=== PATIENT | female | born 1955 | race Caucasian/White ===

== ENCOUNTER 2024-03-20 12:44 | Emergency (ER) | payer MEDICARE, OTHER, SELFPAY ==
[2024-03-20 12:49] VITALS: BP 130/74
--- NOTE | 2024-03-20 12:52 | ED.GENMED ---
ED Provider Triage
<Norma Moore PA-C - Last Filed: 03/20/24 12:56>
-
Patient seen by provider in Triage?: Seen in Triage
Attestation: A medical screening examination has been initiated by a qualified medical provider. Based on the assessment performed at this time, it has been determined that an emergent medical condition may exist and the patient has been informed
that further medical evaluation and possible additional diagnostic testing may be needed.
HPI: 68yoF here with R sided chest pain x 5-6 days. Pain is pleuritic. Started with a URI initially. No fevers. Hx of PE but no longer on blood thinners. Hx of stage IV breast cancer on PO chemotherapy, follows with [facility].
GENERAL: Alert , in no apparent distress
EYE: No visual abnormalities.
NECK: Trachea midline
ENT: No visible abnormalities.
LUNGS: No acute respiratory distress
NEUROLOGICAL: Alert and oriented
SKIN: Skin intact. No visible changes.
MUSCULOSKELETAL: Moving extremities normally
PSYCH: Normal and appropriate interaction.
This is a medical evaluation conducted in person to initiate diagnostic evaluation and provide initial therapeutics. Please see further documentation by the treating clinician.
Cardiac labs, D-dimer, EKG, and CXR ordered.
History of Present Illness
<Norma Moore PA-C - Last Filed: 03/20/24 12:56>
General
Chief Complaint: Chest Pain
Time Seen by Provider: 03/20/24 15:57
<Peter Dela Cruz DO - Last Filed: 03/20/24 18:13>
General
Source: patient
Exam Limitations: none
History of Present Illness
History of Present Illness:
See MDM
Past History
<Norma Moore PA-C - Last Filed: 03/20/24 12:56>
Past History
ED Past Medical History: Cancer (Stage IV breast cancer) and Other (Bilateral PE)
ED Past Surgical History: Orthopedic (Fracture femor) and Other (Lumpectomy with Mets to the bone Taking Xeloda)
Social History
Tobacco: Former smoker
Alcohol: None
Drug: None
Personal:
Living: with family
Employment: Employed
Family History
Family History: Other (Noncontributory)
Phy Exam
<Peter Dela Cruz, DO - Last Filed: 03/20/24 18:13>
Physical Exam
Physical Exam:
See MDM
Scores
<Peter Dela Cruz, DO - Last Filed: 03/20/24 18:13>
Heart Score for Chest Pain Patients
STEMI patient?: No
History: Slightly or Non-Suspicious
ECG: Normal
Age: >/= 65 years
Risk Factors: 1 or 2 Risk Factors
Troponin: </= Normal Limit
Heart Score for Chest Pain Patients: 3
Heart Score Risk: 2.5% MACE over next 6 weeks
Course
<Norma Moore PA-C - Last Filed: 03/20/24 12:56>
Orders/Labs/Results
Orders:
Orders
03/20/24 12:44
Electrocardiogram (*1) Urgent
Reason for Study: Chest Pain
03/20/24 12:45
EKG- Treatment ONCE
03/20/24 12:58
Complete Blood Count/With Diff Urgent
Comprehensive Metabolic Panel Urgent
D-Dimer Urgent
Troponin I Urgent
03/20/24 15:07
CT Chest Pe Study Urgent
Comment:
Reason For Exam: Pleuritic R sided chest pain, elevated D-dimer
03/20/24 17:57
Ibuprofen [Motrin] 600 mg PO NOW STA
Abnormal Lab Results
03/20/24
12:58
WBC 13.0 H 10^3/uL
(4.8-10.8)
RBC 3.94 L 10^6/uL
(4.20-5.40)
MCH 32.7 H pg
(27.0-31.0)
RDW 14.6 H %
(11.5-14.5)
Abs Immat Gran (auto) 0.1 H 10^3/uL
(0-0.05)
Absolute Neuts (auto) 10.7 H 10^3/uL
(1.4-6.5)
Neutrophils % 82.7 H %
(42.2-75.2)
Lymphocytes % 11.8 L %
(20.5-51.1)
D-Dimer 1.29 H ug/mlFEU
(0.00-0.50)
BUN 20 H mg/dl
(7-17)
Glucose 118 H mg/dl
(70-99)
03/20/24 12:58
03/20/24 12:58
Vital Signs
Initial and Last Documented VS:
Initial Vital Signs
Temp Pulse Resp BP Pulse Ox
98.1 F 111 16 130/74 96
03/20/24 12:49 03/20/24 12:49 03/20/24 12:49 03/20/24 12:49 03/20/24 12:49
Last Documented Vital Signs
Temp Pulse Resp BP Pulse Ox
98.1 F 78 15 129/77 95
03/20/24 12:49 03/20/24 16:15 03/20/24 16:15 03/20/24 16:00 03/20/24 16:15
<Peter Dela Cruz, DO - Last Filed: 03/20/24 18:13>
Orders/Labs/Results
Orders:
Orders
03/20/24 12:44
Electrocardiogram (*1) Urgent
Reason for Study: Chest Pain
03/20/24 12:45
EKG- Treatment ONCE
03/20/24 12:58
Complete Blood Count/With Diff Urgent
Comprehensive Metabolic Panel Urgent
D-Dimer Urgent
Troponin I Urgent
03/20/24 15:07
CT Chest Pe Study Urgent
Comment:
Reason For Exam: Pleuritic R sided chest pain, elevated D-dimer
03/20/24 17:57
Ibuprofen [Motrin] 600 mg PO NOW STA
Abnormal Lab Results
03/20/24
12:58
WBC 13.0 H 10^3/uL
(4.8-10.8)
RBC 3.94 L 10^6/uL
(4.20-5.40)
MCH 32.7 H pg
(27.0-31.0)
RDW 14.6 H %
(11.5-14.5)
Abs Immat Gran (auto) 0.1 H 10^3/uL
(0-0.05)
Absolute Neuts (auto) 10.7 H 10^3/uL
(1.4-6.5)
Neutrophils % 82.7 H %
(42.2-75.2)
Lymphocytes % 11.8 L %
(20.5-51.1)
D-Dimer 1.29 H ug/mlFEU
(0.00-0.50)
BUN 20 H mg/dl
(7-17)
Glucose 118 H mg/dl
(70-99)
03/20/24 12:58
03/20/24 12:58
Vital Signs
Initial and Last Documented VS:
Initial Vital Signs
Temp Pulse Resp BP Pulse Ox
98.1 F 111 16 130/74 96
03/20/24 12:49 03/20/24 12:49 03/20/24 12:49 03/20/24 12:49 03/20/24 12:49
Last Documented Vital Signs
Temp Pulse Resp BP Pulse Ox
98.1 F 78 15 129/77 95
03/20/24 12:49 03/20/24 16:15 03/20/24 16:15 03/20/24 16:00 03/20/24 16:15
<Peter Dela Cruz, DO - Last Filed: 03/20/24 18:13>
MDM/Problems Addressed
Differential Diagnosis Includes:
HPI and MDM Narrative:
Patient was initially seen in triage and orders were obtained. I did review the triage note
68-year-old female presenting [id number] right-sided chest pain with inspiration. Patient was initially treated with antibiotics and steroids for upper respiratory infection. Given the ongoing symptoms, she was sent in for evaluation. Patient
has a history of cancer and a history of PEs. She has been off Xarelto for approximately 10 months. They have been trending D-dimers. D-dimer was performed in triage and it is elevated. Symptoms are not worse with exertion. Troponin negative.
Doubt ACS
Given her symptoms and her history, she is high risk for PE. Will obtain CT
Physical exam
General: Well appearing and non-toxic
HEENT: protecting airway
Neck: appears supple
CV: No evidence of cyanosis. Regular rate and rhythm
Resp: No accessory muscle use. Lungs clear
Abd: Non-distended
Extremities: No deformities
Neuro: alert
Psych: Normal affect
Skin: No chest wall rash noted
Problems Addressed including Acute and Chronic Conditions affecting care:
1. Pleuritic chest pain
Acuity: acute
Prognosis: stable
Details: Given her history, will obtain CT to rule out PE
2. [ ]
Acuity: acute
Prognosis: stable
Details:
3. [ ]
Acuity: acute
Prognosis: stable
Details:
4. [ ]
Acuity: acute
Prognosis: stable
Details:
5. [ ]
Acuity:
Prognosis:
Details:
Updates
Differential Diagnosis (but not limited to): Pneumonia, pleuritic chest pain, PE
Testing considered: Chest x-ray but will obtain CT PE
Drug therapy (if applicable): OTC meds, please see d/c instruction regarding Rx drugs
Amount and/or Complexity of Data Reviewed
Clinical info obtained from: Patient
External data reviewed: N/A
Labs I independently reviewed (but not limited to): Troponin normal, elevated D-dimer
Radiology: N/A
Pulse Ox: not hypoxic
EKG independently reviewed: N/A
In Home Caregiver: N/A
Critical Care: N/A
Risk of Complication:
Social Determinants of health: Good social support
Discussed with other providers: N/A
Escalation of Care includes Admit/Obs: After being observed in the Emergency Department, pt stable for discharge.
Occasional wrong word or 'sound a like' substitutions may have occurred due to the inherent limitations of voice recognition software. Read the chart carefully and recognize, using context, where substitutions have occurred.
<Peter Dela Cruz DO - Last Filed: 03/20/24 18:13>
*Critical Care Note
Total Time (30-74mins, 75-104mins- exclusive of procedures): Not Applicable
ED Attending Note
<Norma Moore PA-C - Last Filed: 03/20/24 12:56>
-
Portions of this chart may have been created with voice recognition software.� Occasional wrong word or��sound alike� substitutions may have occurred due to the inherent limitations of voice recognition software.
Discharge Plan
Departure
Patient Disposition: Home (Routine Discharge)
Date of Disposition: 10/22/24
Time of Disposition: 18:09
Patient with high blood pressure during this ER visit?: No
Discharge Problem:
Bronchiectasis
Instructions: Bronchiectasis in adults
Prescriptions:
No Action
dicyclomine 20 MG tablet
20 mg PO QID
topiramate 100 MG tablet
100 mg PO TID
multivitamin [Multi-Day] 1 EACH tablet
1 ea PO DAILY
calcium carbonate [calcium] 500 MG tablet
1,000 mg PO DAILY
Vitamin D
1,000 mg PO DAILY
aripiprazole 10 MG tablet
10 mg PO DAILY
Xarelto 20 MG tablet
20 mg PO DAILY
Vitamin B-1
1 tab PO DAILY
Patient Comments:
Pt does not know dose.
capecitabine [Xeloda] 500 mg Tablet
1,500 mg PO BID
Rx Instructions:
M,W,F
capecitabine [Xeloda] 500 mg Tablet
1,000 mg PO BID
Rx Instructions:
T, THRS, SAT, SUN
gabapentin 300 mg Tablet
300 mg PO QID
desvenlafaxine succinate [Pristiq] 100 mg Tablet Extended Release 24 Hr
100 mg PO DAILY
Referrals:
Dimas Askew DO [Family Provider] -
Activity Restrictions/Additional Instructions:
Please return for any worsening symptoms.
You may return at any time if you have further concerns.
Please follow up with your doctor at the first available appointment, preferably this week.
Please continue with the breathing treatments and steroids. Please add Mucinex for the mucus plugging.
Thank you for choosing [facility].
Interventions
Interventions:
*Risk Screen - Suicide Last Done: 03/20/24 12:49
*General Assessment Last Done: 03/20/24 12:49
*Neglect/Abuse Screening Last Done: 03/20/24 12:49
*ED COVID-19 Vaccine History Last Done: 03/20/24 16:38
Discharge Date and Time
Print Language: SENEGALESE
[2024-03-20 13:15] LABS: % Basophils 0.7 % (0-2); % Eosinophils 0.3 % (0-6); % Immature Granulocytes 0.5 % (0-0.5); % Lymphocytes 11.8 % (20.5-51.1); % Neutrophils 82.7 % (42.2-75.2); Absolute Basophils 0.1 10^3/uL (0-0.2); Absolute Immature Granulocytes 0.1 10^3/uL (0-0.05); Absolute Lymphocytes 1.5 10^3/uL (1.2-3.4); Absolute Monocytes 0.5 10^3/uL (0.1-0.6); Absolute Neutrophils 10.7 10^3/uL (1.4-6.5); Hematocrit 37.1 % (37.0-47.0); Hemoglobin 12.9 g/dL (12.0-16.0); Mean Corp Hgb Conc. 34.8 g/dL (33.0-37.0); Mean Corpuscular Hgb 32.7 pg (27.0-31.0); Mean Corpuscular Volume 94.2 fL (81.0-99.0); Mean Platelet Volume 9.3 fL (7.4-10.4); Nucleated Red Blood Cells % 0 %; Platelet Count 353 10^3/uL (130-400); Red Blood Cell Count 3.94 10^6/uL (4.20-5.40); Red Cell Dist. Width 14.6 % (11.5-14.5)
[2024-03-20 13:19] LABS: ALT (SGPT) 18 U/L (0-35); AST (SGOT) 22 U/L (14-36); Albumin 4.6 g/dl (3.5-5.0); Alkaline Phosphatase 66 U/L (38-126); Blood Urea Nitrogen 20 mg/dl (7-17); Calcium 9.9 mg/dl (8.4-10.2); Carbon Dioxide 22 mmol/L (22-30); Chloride 104 mmol/L (98-107); Glucose 118 mg/dl (70-99); Potassium 4.4 mmol/L (3.5-5.1); Sodium 137 mmol/L (135-145); Total Bilirubin 0.4 mg/dl (0.2-1.3); Total Protein 7.3 g/dl (6.3-8.2); eGFR > 60.00
[2024-03-20 13:21] LABS: D-Dimer 1.29 ug/mlFEU (0.00-0.50)
[2024-03-20 13:39] LABS: Troponin I < 0.012 ng/ml
[2024-03-20 15:36] VITALS: BP 116/78
[2024-03-20 16:00] VITALS: BP 129/77
[2024-03-20 16:38] VITALS: BMI 23.2
[2024-03-20] MEDS: MOTRIN 600 MG PO (17:59)
[2024-03-20 18:01] VITALS: BP 115/63
== END 2024-03-20 18:18 | disposition home or self-care (01) ==
LOC: EMR 12:44
PROVIDERS: Physician Assistant; EMERGENCY PHYSICIAN Student in an Organized Health Care Education/Training Program; FAMILY PHYSICIAN Family Medicine; OTHER PHYSICIAN Internal Medicine Hematology & Oncology
DX: J47.9 Bronchiectasis, uncomplicated (principal); Z85.3 Personal history of malignant neoplasm of breast; Z86.711 Personal history of pulmonary embolism; Z87.891 Personal history of nicotine dependence
CPT/HCPCS: 99284; 71275; 80053; 84484; 85025; 85379; 93005; Q9967